=== PATIENT | female | born 1985 | race Two or more races ===

== ENCOUNTER 2021-12-07 06:25 | Day surgery (SDC) | payer OTHER ==
[~2021-12-07] VITALS: Ht 161.3 cm; Wt 68.0 kg
[~2021-12-07 06:25] MED LIST: SYNTHROID75 MCG PO
== END 2021-12-07 10:20 | disposition home or self-care (01) ==
LOC: CIR.AMB 06:25
PROVIDERS: ATTEND Orthopaedic Surgery Hand Surgery
DX: G56.01 Carpal tunnel syndrome, right upper limb (principal); Z20.822 Contact with and (suspected) exposure to COVID-19; E03.9 Hypothyroidism, unspecified; G43.909 Migraine, unspecified, not intractable, without status migrainosus